=== PATIENT | female | born 1980 | race Caucasian/White ===

== ENCOUNTER 2019-01-25 23:38 | Emergency (ER) | payer SELFPAY ==
--- NOTE | 2019-01-26 01:01 | EDPHYS ---
Physician Documentation [facility] Name: Jeanne Reagan Age: 38 yrs Sex: Female : 1980 Arrival Date: 01/25/2019 Time: 23:43 Bed 13 Private MD: ED Physician Marty Braga HPI: 01/26 00:23 This 38 yrs old Female presents to ER via Ambulatory with complaints of Back kb Pain. 00:23 The patient presents with urinary symptoms, difficulty urinating, irregular menses. kb Onset: The symptoms/episode began/occurred yesterday. Modifying factors: The symptoms are alleviated by nothing, the symptoms are aggravated by nothing. Associated signs and symptoms: Pertinent positives: difficulty urinating. Severity of symptoms: At their worst the symptoms were mild, moderate, in the emergency department the symptoms are unchanged. The patient has not experienced similar symptoms in the past. The patient has not recently seen a physician. significant other was treated for possible STD for dysuria so she came to get the treatment as well. 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 - Social history:: Smoking status: Patient uses tobacco products, smokes one pack cigarettes per day. - Ebola Screening: : No symptoms or risks identified at this time. ROS: 01/26 00:21 Constitutional: Negative for fever, chills, and weight loss, ENT: Negative for injury, kb pain, and discharge, Neck: Negative for injury, pain, and swelling, Cardiovascular: Negative for chest pain, palpitations, and edema, Respiratory: Negative for shortness of breath, cough, wheezing, and pleuritic chest pain, Abdomen/GI: Negative for abdominal pain, nausea, vomiting, diarrhea, and constipation, Back: Negative for injury and pain, MS/Extremity: Negative for injury and deformity, Skin: Negative for injury, rash, and discoloration, Neuro: Negative for headache, weakness, numbness, tingling, and seizure. : Positive for difficulty urinating, menstrual abnormality. Exam: 00:23 Constitutional: This is a well developed, well nourished patient who is awake, alert, kb and in no acute distress. Head/Face: Normocephalic, atraumatic. ENT: Nares patent. No nasal discharge, no septal abnormalities noted. Tympanic membranes are normal and external auditory canals are clear. Oropharynx with no redness, swelling, or masses, exudates, or evidence of obstruction, uvula midline. Mucous membranes moist. Neck: Trachea midline, no thyromegaly or masses palpated, and no cervical lymphadenopathy. Supple, full range of motion without nuchal rigidity, or vertebral point tenderness. No Meningismus. Chest/axilla: Normal chest wall appearance and motion. Nontender with no deformity. No lesions are appreciated. Cardiovascular: Regular rate and rhythm with a normal S1 and S2. No gallops, murmurs, or rubs. Normal PMI, no JVD. No pulse deficits. Respiratory: Lungs have equal breath sounds bilaterally, clear to auscultation and percussion. No rales, rhonchi or wheezes noted. No increased work of breathing, no retractions or nasal flaring. Abdomen/GI: Soft, non-tender, with normal bowel sounds. No distension or tympany. No guarding or rebound. No evidence of tenderness throughout. Back: No spinal tenderness. No costovertebral tenderness. Full range of motion. Skin: Warm, dry with normal turgor. Normal color with no rashes, no lesions, and no evidence of cellulitis. MS/ Extremity: Pulses equal, no cyanosis. Neurovascular intact. Full, normal range of motion. Neuro: Awake and alert, GCS 15, oriented to person, place, time, and situation. Cranial nerves II-XII grossly intact. Motor strength 5/5 in all extremities. Sensory grossly intact. Cerebellar exam normal. Normal gait. Vital Signs: 01/25 23:56 BP 131 / 99; Pulse 87; Resp 18; Temp 98.7; Pulse Ox 99% ; Weight 58.97 kg; Height 4 ft. rv 11 in. (149.86 cm); 01/26 01:33 BP 126 / 87; Pulse 89; Resp 16; Temp 98.5; Pulse Ox 98% on R/A; Pain 2; aa1 01/25 23:56 Body Mass Index 26.26 (58.97 kg, 149.86 cm) rv MDM: 01/25 23:47 Patient medically screened. kb 01/26 00:22 Data reviewed: vital signs, nurses notes. Data interpreted: Pulse oximetry: on room air kb is 99 %. Interpretation: normal. 00:59 Counseling: I had a detailed discussion with the patient and/or guardian regarding: the kb historical points, exam findings, and any diagnostic results supporting the discharge/admit diagnosis, lab results, the need for outpatient follow up, an OB/Gyne specialist, to return to the emergency department if symptoms worsen or persist or if there are any questions or concerns that arise at home. 01/26 00:11 Order name: Urine Microscopic Only; Complete Time: 01:09 kb 01/26 00:54 Order name: Urine Dipstick--Ancillary (enter results) em1 01/26 00:11 Order name: Urine Test (obtain specimen); Complete Time: 00:51 kb 01/26 00:54 Order name: Urine --Ancillary (enter results) em1 01/26 00:11 Order name: Urine Dipstick-Ancillary (obtain specimen); Complete Time: 00:51 kb Administered Medications: 01:15 Drug: Zithromax 1 grams Route: PO; aa1 01:35 Follow up: Response: No adverse reaction; Medication administered at discharge. aa1 01:15 Drug: Rocephin (cefTRIAXone) 250 mg Route: IM; Site: right deltoid; aa1 01:35 Follow up: Response: No adverse reaction; Medication administered at discharge. aa1 Disposition: 07:15 Co-signature as Attending Physician, Marty Braga MD Available for consultation at ps1 all times . Disposition: 01/26/19 01:00 Discharged to Home. Impression: Volume depletion, Irregular menstruation, unspecified. - Condition is Stable. - Discharge Instructions: Dehydration, Adult, [id number], Abnormal Uterine Bleeding, [id number]. - Medication Reconciliation Form, Thank You Letter, Antibiotic Education, Prescription Opioid Use form. - Follow up: Emergency Department; When: As needed; Reason: Worsening of condition. Follow up: Private Physician; When: 2 - 3 days; Reason: Recheck today's complaints, Continuance of care, Re-evaluation by your physician. Signatures: Dis[facility] Funmilayo Barkley, ENGINEERING OPERATIONS LEADER-C ENGINEERING OPERATIONS LEADER-Ckb Fior Zhu RN RN aa1 Marty Braga MD MD ps1 Fady Tuttle, RN RN rv Corrections: (The following items were deleted from the chart) 01:34 01:00 01/26/2019 01:00 Discharged to Home. Impression: Volume depletion; Irregular aa1 menstruation, unspecified. Condition is Stable. Forms are Medication Reconciliation Form, Thank You Letter, Antibiotic Education, Prescription Opioid Use. Follow up: Emergency Department; When: As needed; Reason: Worsening of condition. Follow up: Private Physician; When: 2 - 3 days; Reason: Recheck today's complaints, Continuance of care, Re-evaluation by your physician. kb
--- NOTE | 2019-01-26 01:01 | ER ---
Nurse's Notes [facility] Name: Jeanne Reagan Age: 38 yrs Sex: Female : 1980 Arrival Date: 01/25/2019 Time: 23:43 Bed 13 Private MD: Diagnosis: Volume depletion;Irregular menstruation, unspecified Presentation: 01/25 23:54 Presenting complaint: Patient states: I had my period on 01/04/19 then I had it again at 01/17, it just stopped yesterday. I had cramps, i threw up couple of days ago. and today I am having trouble urinating. Transition of care: patient was not received from another setting of care. Onset of symptoms was January 25, 2019 at 15:00. Risk Assessment: Do you want to hurt yourself or someone else? Patient reports no desire to harm self or others. Initial Sepsis Screen: Does the patient meet any 2 criteria? No. Patient's initial sepsis screen is negative. Does the patient have a suspected source of infection? No. Patient's initial sepsis screen is negative. Care prior to arrival: None. 23:54 Method Of Arrival: Ambulatory 23:54 Acuity: YUMIKO 3 rv Triage Assessment: 23:58 General: Appears in no apparent distress. comfortable, Behavior is calm, cooperative. rv Pain: Complains of pain in low back area. EENT: No signs and/or symptoms were reported regarding the EENT system. Neuro: Level of Consciousness is awake, alert, obeys commands, Oriented to person, place, time, situation. Cardiovascular: Patient's skin is warm and dry. Respiratory: Airway is patent. GI: No signs and/or symptoms were reported involving the gastrointestinal system. : No signs and/or symptoms were reported regarding the genitourinary system. Derm: Skin is intact. Musculoskeletal: Swelling absent. 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 - Social history:: Smoking status: Patient uses tobacco products, smokes one pack cigarettes per day. - Ebola Screening: : No symptoms or risks identified at this time. Screenin/10 00:00 Abuse screen: Denies threats or abuse. Denies injuries from another. Nutritional rv screening: No deficits noted. Tuberculosis screening: No symptoms or risk factors identified. Fall Risk None identified. Assessment: 00:00 General: Appears in no apparent distress. comfortable, Behavior is calm, cooperative, aa1 appropriate for age. Pain: Complains of pain in low back area Quality of pain is described as crampy, Pain began 1 day ago. Is continuous. Neuro: Level of Consciousness is awake, alert, obeys commands, Oriented to person, place, time, situation, Moves all extremities. Full function Gait is steady. Respiratory: Airway is patent Respiratory effort is even, unlabored, Respiratory pattern is regular, symmetrical. GI: No signs and/or symptoms were reported involving the gastrointestinal system. : No signs and/or symptoms were reported regarding the genitourinary system. EENT: No signs and/or symptoms were reported regarding the EENT system. Derm: Skin is intact, is healthy with good turgor, Skin is pink, warm \T\ dry. Musculoskeletal: Circulation, motion, and sensation intact. Capillary refill < 3 seconds, Range of motion: intact in all extremities. 01:33 Reassessment: Patient appears in no apparent distress at this time. Patient is alert, aa1 oriented x 3, equal unlabored respirations, skin warm/dry/pink. Discussed d/c \T\ f/u instructions with pt; denies questions or concerns at this time. Vital Signs: 01/25 23:56 BP 131 / 99; Pulse 87; Resp 18; Temp 98.7; Pulse Ox 99% ; Weight 58.97 kg; Height 4 ft. rv 11 in. (149.86 cm); 01/26 01:33 BP 126 / 87; Pulse 89; Resp 16; Temp 98.5; Pulse Ox 98% on R/A; Pain 05/29; aa1 01/25 23:56 Body Mass Index 26.26 (58.97 kg, 149.86 cm) rv ED Course: 01/25 23:43 Patient arrived in ED. cl3 23:45 Funmilayo Barkley FNP-C [facility] kb 23:45 Marty Braga MD is Attending Physician. kb 23:56 Triage completed. rv 23:59 Patient has correct armband on for positive identification. Bed in low position. Call rv light in reach. Side rails up X 1. Adult w/ patient. Pulse ox on. NIBP on. 23:59 Patient placed in the treatment room, on a stretcher, on pulse oximetry, Patient rv notified of wait time. 01/26 00:13 Fior Zhu, RN is Primary Nurse. aa1 01:33 No provider procedures requiring assistance completed. Patient did not have IV access aa1 during this emergency room visit. Administered Medications: 01:15 Drug: Zithromax 1 grams Route: PO; aa1 01:35 Follow up: Response: No adverse reaction; Medication administered at discharge. aa1 01:15 Drug: Rocephin (cefTRIAXone) 250 mg Route: IM; Site: right deltoid; aa1 01:35 Follow up: Response: No adverse reaction; Medication administered at discharge. aa1 Outcome: 01:00 Discharge ordered by . kb 01:33 Discharged to home ambulatory. aa1 01:33 Condition: good 01:33 Discharge instructions given to patient, Instructed on discharge instructions, follow up and referral plans. Demonstrated understanding of instructions, follow-up care. 01:34 Patient left the ED. aa1 Signatures: Funmilayo Barkley, SET BUILDER-C SET BUILDER-CkFior Robert, RN RN aa1 Fady Tuttle RN RN rv Lewis, Charde cl3
[2019-01-26 01:07] LABS: Urine Amorphous Sediment TRACE /HPF (NONE SEEN); Urine Bacteria <20 /HPF (<20); Urine Culture Reflex Order NOT NEEDED; Urine Mucus HEAVY /HPF (NONE SEEN); Urine RBC <5 /HPF (NONE SEEN)
[2019-01-26] MEDS ORDERED: LIDOCAINE 1% MPF 5 ML VIAL ONE (01:16)
[2019-01-26] MEDS ORDERED: AZITHROMYCIN 250 MG TAB ONE (01:16)
[2019-01-26] MEDS ORDERED: CEFTRIAXONE 250 MG/VIAL ONE (01:16)
[2019-01-26 01:37] LABS: Urine Blood 1+ (NEG); Urine Glucose NEGATIVE (NEG); Urine Protein 1+ (NEG); Urine Specific Gravity >1.030 (1.005-1.030)
== END 2019-01-26 01:34 | disposition home or self-care (01) ==
LOC: ER 23:38
DX: E86.9 Volume depletion, unspecified (principal); F17.210 Nicotine dependence, cigarettes, uncomplicated
CPT/HCPCS: 81003; 81015; 81025; 96372; 99283; J0696